=== PATIENT | female | born 1990 | race Caucasian/White ===

== ENCOUNTER 2020-05-25 16:19 | Outpatient (RCR) | payer BC, SELFPAY ==
[2019-10-27 15:29] VITALS: BMI 33.8
== END 2020-07-31 23:59 ==
LOC: IMMUN 16:19
PROVIDERS: PCP Student in an Organized Health Care Education/Training Program; Visit Provider Family Medicine
DX: Z23 Encounter for immunization (principal)
CPT/HCPCS: 0001A; 0002A; 91300

== ENCOUNTER → 2020-08-29 11:20 | Outpatient (CLI) | payer BC, SELFPAY ==
[2020-08-20 08:29] VITALS: BMI 33.8
[2020-08-29 13:04] LABS: T4 Free Direct 0.94 ng/dL (0.76-1.46); Thyroid Stim Hormone (TSH) 1.02 uIU/mL (0.358-3.74)
== END ==
PROVIDERS: PCP Student in an Organized Health Care Education/Training Program; Referring Provider Internal Medicine Endocrinology, Diabetes & Metabolism; Visit Provider Internal Medicine Endocrinology, Diabetes & Metabolism
DX: E03.8 Other specified hypothyroidism (principal); E06.3 Autoimmune thyroiditis
CPT/HCPCS: 36415; 84439; 84443

== ENCOUNTER → 2022-01-31 | Outpatient (CLI) | payer BC, SELFPAY ==
[2022-01-31 10:50] LABS: Microalbumin,Random Urine 11.7 mg/L (NO RANGE EST.); Microalbumin:Creatinine Ratio 7.6 mg/g CRE (<30 mg/g CRE)
[2022-01-31 10:58] LABS: Vitamin D,25 Hydroxy 18.8 ng/mL
[2022-01-31 11:06] LABS: ALB/GLOB Ratio 0.7 RATIO (0.9-2.4); AST(SGOT) 14 U/L (15-37); Alanine Aminotransfer ALT/SGPT 24 U/L (13-56); Albumin, Serum 3.1 g/dL (3.2-5.0); Alkaline Phosphatase 87 U/L (45-117); Anion Gap 5 (5-15); BUN 12 mg/dL (7-18); BUN/Creat Ratio 13.3 RATIO (10-20); Calcium,Total 8.7 mg/dL (8.5-10.1); Chloride 105 mmol/L (98-107); Cholesterol 174 mg/dL (200); EST Glomerular Filtration Rate 78 mL/min (>60); Est Glom Filt Rate - Afr Amer 94 mL/min (>60); Globulin 4.4 g/dL (2.2-4.2); Glucose 252 mg/dL (74-106); High Density Lipoprotein 61 mg/dL; Protein, Total 7.5 g/dL (6.4-8.2); Sodium Level 137 mmol/L (136-145); T4 Free Direct 1.17 ng/dL (0.76-1.46); Triglycerides 134 mg/dL; Very Low Density Lipoprotein 27 mg/dL (5-40)
== END | disposition home or self-care (01) ==
LOC: LAB 09:44
PROVIDERS: PCP Student in an Organized Health Care Education/Training Program; Visit Provider Internal Medicine Endocrinology, Diabetes & Metabolism
DX: E11.9 Type 2 diabetes mellitus without complications (principal); E06.3 Autoimmune thyroiditis; E55.9 Vitamin D deficiency, unspecified
CPT/HCPCS: 36415; 80053; 80061; 82043; 82306; 82570; 84439; 84443

== ENCOUNTER → 2022-12-02 | Outpatient (CLI) | payer BC, SELFPAY ==
--- NOTE | 2022-12-02 | ASPSI_PTH ---
PATIENT: HELEN ROBLERO [facility] U#:[id number] AGE/SX: 32/F ROOM: RE12/02/[address]: Dr. Eric Rolle MD : 1990 BED: DIS: 12/02/2022 SPEC #: [id number] RECD: 12/02/22 16:01 STATUS: JONATHON RECarl #: [id number] LINETTE: 12/02/22 00:[address]: Eric Rolle DEPT: CYTOLOGY RECD BY: Dinesh Pan ENTERED: 12/03/22 09:02 SP TYPE: ASP MAKENNA KRUSE DR: Dr. Clayton Barbosa DO Tissues: A - Thyroid gland, NOS B - Thyroid gland, NOS C - Thyroid gland, NOS D - Thyroid gland, NOS Procedures: Surgery Specimen Level IV Cytospin Fluid Cytology Other HEADER OPERATION: Fine needle aspiration, thyroid nodules PRE-OP DIAGNOSIS: Thyroid nodules TISSUE SUBMITTED: A - Right mid thyroid nodule fluid, B - Right mid thyroid nodule x4 slides, C - Right posterior thyroid nodule fluid, D - Right posterior thyroid nodule x4 slides DIAGNOSIS CYTOLOGY A. Fine needle aspiration, right mid thyroid nodule (cytospin and cell block): Negative for malignant cells. See comment. B. Fine needle aspiration, right mid thyroid nodule (smears): Consistent with benign follicular nodule (Arthur Category II). See comment. C. Fine needle aspiration, right posterior thyroid nodule (cytospin and cell block): Negative for malignant cells. See comment. D. Fine needle aspiration, right posterior thyroid nodule (smears): Consistent with benign follicular nodule (Arthur Category II). See comment. AM:juan jose 12/04/2022 COMMENT A. The specimen contains rare benign follicular cells and acute and chronic inflammatory cells. Clinical correlation is suggested. B. The Arthur System for thyroid diagnostic categorization was used in the evaluation of this case. Adequate for evaluation. C. Follicular cells are not present. Clinical correlation is suggested. D. The Arthur System for thyroid diagnostic categorization was used in the evaluation of this case. The majority of the smears are obscured by blood. Clinical correlation is suggested. CYTOLOGY STUDY Slides are reviewed. CYTOLOGY GROSS A - Received is 30 ml of red fluid labeled with the patient's name and and designated per the requisition as right mid thyroid nodule. Submitted for cytology preparation including cell block. B - Received are four smears labeled with the patient's name and designated per the requisition as right mid thyroid nodule. Submitted for staining. C - Received is 5 ml of light red fluid labeled with the patient's name and and designated per the requisition as right posterior thyroid nodule. Submitted for cytology preparation including cell block. D - Received are four smears labeled with the patient's name and designated per the requisition as right posterior thyroid nodule. Submitted for staining. / juan jose 12/03/2022 TC:5 CPT: 87051 x4, 37434 x2
== END | disposition home or self-care (01) ==
LOC: LABSPEC 16:04
PROVIDERS: PCP Student in an Organized Health Care Education/Training Program; Referring Provider Surgery; Visit Provider Surgery
DX: E04.2 Nontoxic multinodular goiter (principal)
CPT/HCPCS: 88108; 88161; 88305

== ENCOUNTER → 2022-12-06 | Outpatient (CLI) | payer BC, SELFPAY ==
[2022-12-06 11:22] LABS: ALB/GLOB Ratio 0.8 RATIO (0.9-2.4); AST(SGOT) 10 U/L (15-37); Alanine Aminotransfer ALT/SGPT 23 U/L (13-56); Albumin, Serum 3.2 g/dL (3.2-5.0); Alkaline Phosphatase 76 U/L (45-117); Anion Gap 3 (5-15); BUN 17 mg/dL (7-18); BUN/Creat Ratio 19.7 RATIO (10-20); Calcium,Total 8.3 mg/dL (8.5-10.1); Chloride 107 mmol/L (98-107); Cholesterol 191 mg/dL (200); Creatinine, Serum 0.86 mg/dL (0.55-1.02); EST Glomerular Filtration Rate 81 mL/min (>60); Est Glom Filt Rate - Afr Amer 99 mL/min (>60); Globulin 4.2 g/dL (2.2-4.2); Glucose 155 mg/dL (74-106); High Density Lipoprotein 62 mg/dL; Potassium 4.1 mmol/L (3.5-5.1); Protein, Total 7.4 g/dL (6.4-8.2); Sodium Level 137 mmol/L (136-145); Triglycerides 116 mg/dL; Very Low Density Lipoprotein 23 mg/dL (5-40)
[2022-12-06 11:24] LABS: Microalbumin,Random Urine 10.1 mg/L (NO RANGE EST.); Microalbumin:Creatinine Ratio 4.1 mg/g CRE (<30 mg/g CRE)
[2022-12-06 11:30] LABS: Free T3 2.2 pg/mL (2.18-3.98); T4 Total, Thyroxin 10.2 ug/dL (4.8-13.9)
== END | disposition home or self-care (01) ==
LOC: LAB 10:20
PROVIDERS: Internal Medicine Endocrinology, Diabetes & Metabolism; PCP Student in an Organized Health Care Education/Training Program; Referring Provider Surgery; Visit Provider Surgery
DX: E04.9 Nontoxic goiter, unspecified (principal); E11.9 Type 2 diabetes mellitus without complications; Z79.4 Long term (current) use of insulin
CPT/HCPCS: 36415; 80053; 80061; 82043; 82570; 84436; 84443; 84481

== ENCOUNTER 2023-01-13 12:16 | Observation (INO) | payer BC, SELFPAY ==
[2023-01-13] VITALS (9 sets, daily range): BP systolic 122–183; BP diastolic 62–102; PULSE 90–110; RESP 16–18; TEMP 36.1–36.9; O2SAT 94–100; BMI 46.9; BMI 47.9
--- NOTE | 2023-01-13 | IMM_PTH ---
PATIENT: HELEN ROBLERO LOC: [facility] U#:[id number] AGE/SX: 32/F ROOM: MS308 RE01/13/[address]: Dr. Eric Rolle MD : 1990 BED: 1 DIS: 01/14/2023 SPEC #: [id number] RECD: 01/16/23 13:17 STATUS: SOUJennifer REQ #: [id number] LINETTE: 01/13/23 00:[address]: Eric Rolle DEPT: IMMUNOHISTOCHEMISTRY RECD BY: Isabela Baugh ENTERED: 01/16/23 13:18 SP TYPE: IMMUNO OTHR DR: Dr. Clayton Barbosa DO Tissues: Thyroid gland, NOS Procedures: CD56 (add) CK19 (add) GAL-3 (add) HBME (add) Pankeratin (initial) Pankeratin (add) PHYSICIAN & INSTITUTION [place] [id number] SPECIMEN INFORMATION: Tissue Source: Thyroid Clinical Info: Multiple thyroid nodules Specimen Number: [id number] #1 & 5 CPT code: 47101, 59060 x9 METHODOLOGY: Deparaffinized sections of prefer/formalin-fixed tissue or PAP/DQ stained slides are incubated with monoclonal/polyclonal antibodies/oligonucleotide probes. Localization is made via biotin free immunoperoxidase method. Appropriate controls are performed and reacted as expected. Results on target cell population are indicated in the following table: RESULTS: ANTIBODY / CLONE RESULT Block 1 AE1-3 (AE1/AE3/PCK26) positive HBME1 (HBME-1) positive CK19 (A53-B/A2.26) positive GAL3 (9C4) positive CD56 (123C3.D5) negative Block 5 AE1-3 (AE1/AE3/PCK26) positive HBME1 (HBME-1) positive CK19 (A53-B/A2.26) positive GAL3 (9C4) positive CD56 (123C3.D5) negative These tests were developed and their performance characteristics determined by [facility]. They may not have been cleared or approved by the U.S. Food and Drug Administration. The FDA has determined that such clearance or approval is not necessary. The above immunohistochemical/dualISH markers are ordered and reviewed by the Pathologist. INTERPRETATION: Thyroid, total thyroidectomy: Papillary thyroid carcinoma. AM:juan jose 01/19/2023
[2023-01-13] MEDS: Lactated Ringers 1,000 ML 15 ML IV (06:32)
[2023-01-13 06:55] LABS: Bedside Glucose 163 mg/dL (74-106)
--- NOTE | 2023-01-13 07:26 | HP.PCM_ITS ---
History and Physical Date of Admission: 01/13/23 [facility] [address] [place], [place] [id number] OFFICE VISIT Date of Service: 12/25/22 MR#: [id number] Acct: [id number] Name: HELEN ROBLERO Rep #: [id number] : 1990 Provider: Dr. Eric Rolle MD Age/Sex: 32/F Location: [facility] Status: Signed Intake Vital Signs 12/02/2312:04 12/25/2309:04 Height 5 ft 8 in 5 ft 8 in Weight: 300 lb 310 lb 2 oz BMI 45.6 47.1 BP 155/95 H Blood Pressure Location Rt brachial Position Sitting Respiration 18 17 Pulse 110 H Pulse Source Monitor Temp 97.8 F Temp Source Temporal Pulse Oximetry (%) 100 Oxygen Delivery Method room air Intake Visit Reasons: DISCUSS SURGERY Chief Complaint: discuss sx Tong Setter Required: No Is patient in pain?: No Allergies No Known Allergies Allergy (Verified 12/02/22 13:05) PFSH Medical History Diabetes Nodular goiter Obesity Type 2 diabetes mellitus Surgical History Hx of oral surgery S/P section Family History Unknown Cancer Diabetes Thyroid disorder CVA (cerebral vascular accident) Thyroid cancerGrandmother CVA (cerebral vascular accident) Breast cancerGrandfather Colon cancerMother Cancer thyroid Thyroid disorderFather Cancer NH lymphoma Diabetes Social History Smoking Status: Former smoker alcohol intake: current substance use type: does not use HPI HPI HPI: Patient is a 32-year female who presents for enlarging thyroid nodule. She reports today for consideration of total thyroidectomy and preoperative discussions. She denies any significant updates and states that she is convinced this is the best course of action given prior conversations with her mother who underwent total thyroidectomy and was found to have thyroid cancer on final pathology?occasioning postoperative need for radioactive iodine therapy as well. Below is recapitulated from patient's initial consultation visit for ease review: They are referred for surgical consultation from Dr. Ruiz. This was discovered back in 2019 after patient felt a lump in this area. She states that she had ultrasound imaging at that time and underwent fine-needle biopsy of a right- sided nodule. She then went 4 years without having surveillance and underwent repeat biopsy through [facility] radiology after she was noted to have an increase in the size of her nodule. She believes both biopsy results were benign, however, she was referred to Dr. Ruiz on the account of her thyroid nodules enlarging. She also confirms a history of Yaima's and thyroid hor melissa supplementation with levothyroxine. They do not experience difficulty with swallowing. They do not complain of a new cough. They do not appreciate new voice changes. They do not have a histor y of snoring/sleep apnea. Additionally, their weight has been steadily increasing and they they have a history of weight gain of approximately 40 pounds in the last 3 years despite trying to lose. There is no history of recent fatigue. They do not have a history of heat or cold intolerance. 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 They do have a family history of thyroid disorders or endocrinopathies?including thyroid cancer in their mother?a diagnosis that was made incidentally with final surgical pathology but required postoperative radioactive iodine therapy. They also report that pretty much every woman and their family has hypothyroidism. There is no personal history of prior radiation exposure. Previous work-up has included thyroid ultrasound. This study was performed on 06/05/2022 and showed a right thyroid lobe measuring 7.1 x 3.6 x 4.6 cm. Within this lobe radiology identified to nodules measuring 4.4 x 3.0 x 4.6 cm and a TI- RADS rating of 3. The second nodule measured 1.1 x 1.0 x 1.4 cm with a TI-RADS rating of 4. The left thyroid lobe measured 6.0 x 1.7 x 1.8 cm. Within this lobe radiology identified a nodule measuring 1.0 x 0.7 x 1.1 cm with a solid and hyperechoic appearance for a TI-RADS rating of 3 as well. An FNA has apparently been performed, however, we are unable to identify these records. Other tests include: [TSH, T3, T4,etc ] ROS General General: Yes weight change; No appetite, fatigue, colon cancer, breast cancer or weakness HEENT HEENT: Yes swollen glands; No difficulty swallowing, eye injury, eye surgery or hoarseness Endo Endocrine: Yes diabetes mellitus; No thyroid disease, thyroid cancer, Hair loss, heat intolerance or cold intolerance Skin Skin: No rash or changing moles Breast Breast: No left breast lump, right breast lump, nipple discharge, breast pain, abnormal mammogram, abnormal US or breast enlargement Musc Musculoskeletal: No back problems, arthritis, rheumatoid arthritis, gout or joint pain Cardio Cardiovascular: No murmur, pacemaker, heart disease, atrial fibrillation, high blood pressure, heart attack, heart stent, palpitations, shortness of breat with exertion or chest pain Psych Psychiatric: Yes depression and anxiety; No hearing voices Resp Respiratory: No shortness of breath, No sleep apnea, No cough, No COPD, No asthma, No emphysema and No wheezing Gastro Gastrointestinal: No abdominal pain, No nausea or vomiting, No diarrhea, No constipation, No blood in stool, No acid reflux, No hemorrhoids, No ulcers, No gallbladder problem and No black,tarry stools Rudolph Hematologic: No blood thinners, No blood disorders, No bleeding, No anemia and No blood clots Neuro Neurologic: No system reviewed and no additional complaints, except as documented, No as per HPI, No abnormal gait, No abnormal hearing, No abnormal movements, No abnormal speech, No behavioral changes, No burning sensations, No confusion, No convulsions, No disequilibrium, No dizziness, No localized weakness, No frequent falls, No headache(s), No lack of coordination, No loss of vision, No memory loss, No numbness, No other visual disturbances, No radicular pain, No restless legs, No sensory deficit, No syncope, No tingling, No tremor(s), No weakness and No other Exam Const General: cooperative and healthy appearing Orientation: alert and awake Neck Other: Well-healed from prior biopsy, nontender Assessment and Plan Assessment and Plan (1) Multiple thyroid nodules: Status: Acute Comment: This is a 32-year-old female who presents for evaluation of thyroid nodules that have apparently enlarged over period of 4 years surveillance. She has a history of Yaima's and hypothyroidism corrected with supplemental levothyroxine. She is now status post repeat FNA of right-sided thyroid nodules returned clearly benign as Mutual 2 designations. Still, she wishes to pursue total thyroidectomy on the account of nodular growth and her history of hypothyroidism. She wishes to be through with the thyroid surveillance and shares concern about her family all history with her mother having thyroid cancer 20 years ago. I have admitted that there is some risk for sampling error when thyroid nodules get over 3 cm in diameter (which hers is greater than 4 cm). We held a good conversation today regarding the details of a total thyroidectomy and the attendant risks including a discussion on hypoparathyroidism and recurrent laryngeal nerve injury. I shared with her the use of intraoperative nerve monitoring as a means of trying to mitigate the risk for the latter issue. She states understanding of this information and wishes to proceed with scheduling an operation before the holidays. Plan: ? Plan for total thyroidectomy with intraoperative nerve monitoring. Procedure to be scheduled as a postop observational stay.\\ I have examined the patient and the H&P has been reviewed. There are no clinical changes since date of exam. Procedure and post procedure expectations were reviewed. We will plan to admit patient for an observational stay posto peratively. Neither she nor her spouse have any further questions. Proceed to the operating room for total thyroidectomy with intraoperative nerve monitoring as discussed above.
--- NOTE | 2023-01-13 07:30 | THYROID_PTH ---
PATIENT: HELEN ROBLERO LOC: [facility] U#:[id number] AGE/SX: 32/F ROOM: [facility] RE01/13/[address]: Dr. Eric Rolle MD : 1990 BED: 1 DIS: 01/14/2023 SPEC #: [id number] RECD: 01/14/23 09:26 STATUS: JONATHON RAMOS #: [id number] LINETTE: 01/13/23 07:[address]: Eric Rolle DEPT: SURGICAL PATHOLOGY RECD BY: Ange Hamm ENTERED: 01/14/23 09:26 SP TYPE: THYROID OTHR DR: Dr. Clayton Barbosa, DO Tissues: Thyroid gland, NOS Procedures: Surgery Specimen Level V HEADER OPERATION: Total thyroidectomy PRE-OP DIAGNOSIS: Multiple thyroid nodules TISSUE SUBMITTED: Thyroid, stitch peterson right superior pole MICROSCOPIC DIAGNOSIS Thyroid, total thyroidectomy: Papillary thyroid carcinoma. See synoptic report below. AM:juan jose 01/19/2023 COMMENT Immunohistochemistry ([id number]) supports the above diagnosis. THYROID CANCER SUMMARY Procedure: Total Thyroidectomy Tumor Focality: Bifocal Tumor Site: Right lobe and isthmus Tumor Size: 6.0 millimeters (isthmus), 1.5 millimeters (right lobe) Histologic Type: Papillary thyroid carcinoma Margins: Free of carcinoma Angioinvasion: Not identified Lymphatic Invasion: Not identified Extrathyroidal Extension: Not identified Regional Lymph Nodes: Number of lymph nodes examined: 4 Number of Lymph nodes involved: 0 Node Levels Involved: Not applicable Size of Largest Metastatic Deposit: Not applicable Extranodal Extension: Not applicable Ancillary Studies: [id number] Additional Pathologic Findings: Chronic follicular lymphocytic thyroiditis, colloid nodules with adenomatoid change. Clinical History: Multiple thyroid nodules PATHOLOGIC STAGE: T1b N0 Mx The above summary is in compliance with [employer] (CAP) Cancer Protocols Checklist and [place] Joint Committee on Cancer (AJCC), Staging Manual, 8th Ed. MICROSCOPIC DESCRIPTION Slides are reviewed. GROSS DESCRIPTION Received in fixative is one container labeled with the patient's name and designated thyroid. The specimen consists of a thyroid weighing 62.8 gm. The right lobe is enlarged and measures 7.5 x 5.0 x 3.5 cm. The isthmus measures 3.0 x 2.5 x 1.0 cm. The left lobe measures 4.5 x 2.2 x 2.0 cm. The specimen is differentially inked as follows: right lobe - green, left lobe - blue, isthmus - red and entire posterior surface - black. Serial sections of the isthmus reveal a newell, nodular area measuring 0.6 cm in greatest dimension. Serial sections of the left lobe does not reveal mass lesions. Serial sections of the left lobe reveal a fleshy, red-newell nodule measuring 4.5 x 4.0 x 3.5 cm. [place]yer sections are submitted in 12 cassettes as follows: 1 & 2 - isthmus, totally submitted, 3-5 - right lobe, totally submitted, 6-12 - food service sales representatives sections of the right lobe. / AM:juan jose 01/14/2023 TC:0 [facility]: [id number]
[2023-01-13] MEDS: Cefazolin 3 GM in 0.9% Normal Saline (100mL Bag) 100 ML IV (07:38)
[2023-01-13] MEDS: Bupivacaine 0.25% 30 ML Vial (12:10)
--- NOTE | 2023-01-13 12:24 | PCM.OPRPT ---
Problems Associated Problem List Diagnoses (1) S/P total thyroidectomy: Report of Operation Date of Procedure: 01/13/23 Pre-Operative Diagnosis: Multinodular goiter Post-Operative Diagnosis: Same Surgery/Procedure Performed:: Total thyroidectomy with intraoperative nerve monitoring Description of Surgical Findings:: ? Intact parathyroid glands by gross exam bilaterally ? Intact recurrent laryngeal nerves bilaterally both grossly and by confirmation of nerve monitor signal Surgeon: Eric Rolle learning and development administrator: Renan Bojorquez learning and development administrator: Ortiz Ospina Type of Anesthesia: General/Supplemental Anesthesiologist: Antonio Delgado Specimen's removed: Thyroid Estimated Blood Loss (mL): 125 Description of Procedure: After appropriate identification in the preoperative holding area, the patient was brought to the operating room where she was positioned supine with arms tucked taking care to pad the ulnar nerve bilaterally. Induction of general endotracheal anesthetic was begun and a NIMS tube was placed under glidescope view to confirm coaptation with the vocal cords anteriorly. Tube was then secured and the patient was positioned with a shoulder roll so that her head was in extension but supported. The Nims electrodes were placed and connected to the monitor. We had appropriate resistance showing on the monitor and tapping at the level of the cricoid produce a graphical representation of the impulse on the monitor. Patient's neck was then prepped and draped in usual sterile fashion and a formal timeout was conducted with those present. During this time preoperative antibiotics were completed by anesthesia. The lowest skin fold to the sternal notch was selected for incision site (this resided approximately 2.5 fingerbreadths cephalad to the notch). Local anesthetic was instilled and a incision was extended for 3 cm on either side of midline (however, this incision required extension later in the procedure by a total of 2 additional centimeters). Electrocautery was used to deepen this incision through the level of the platysma. Subplatysmal flaps were raised with the use of electrocautery and blunt dissection. The strap muscles were then divided along the medial raphe bringing us down to the level of the thyroid. Capsular attachments to the thyroid were divided with the use of LigaSure or bluntly swept away. Retractors were placed providing visualization of the superior pole of the right lobe of the thyroid. The vessels of the superior pole were sequentially ligated with the use of the LigaSure device. As we moved towards the thyroid gland away from the pole vessels, we visualized the superior parathyroid gland. We then moved inferiorly and divided those polar vessels with LigaSure. The inferior parathyroid gland was grossly visualized and preserved with this division. With the poles freed the thyroid was mobilized medially by bluntly the remaining strap muscle fibers from the thyroid capsule and using LigaSure to divide the middle thyroid vein. I attempted to deliver the patient's large lobe through the incision so that I could then visualize the area of the tracheoesophageal groove directly, but continued to deal with significant oozing. There was also a bit of an aberrant collection of vessels just lateral to the area of the ligament of Yadav and that were causing some oozing. Ensuring adequate traction on the gland and of these vessels I was able to establish a favorable plane and using the Nims monitor was able to obtain a positive signal on her right recurrent laryngeal nerve. The nerve positively identified, I began carefully dissecting off the remaining tracheal attachments around the area of the nerve. I created a minuscule thyroid remnant by insinuating my right angle dissector between patient's thyroid cartilage and the dense attachments at the ligament of Yadav. This remnant was secured with a 4-0 silk ligature and then sharply divided. After elevating the thyroid from this point I attempted to use electrocautery to remove the thyroid from the tracheal surface. Unfortunately, this was met with significant bleeding both superiorly and inferiorly. Pressure was applied and I used some selective electrocautery to obtain hemostasis inferiorly. Superiorly, I remained concerned for the proximity to the nerve so I simply clearly identified a site of bleeding and then performed a suture ligature with 4-0 Vicryl. Ultimately I was able to establish a normal plane over the trachea and obtain hemostasis. As I rounded the area of the superior thyroid cartilage I became aware of a pyramidal lobe which was dissected free of the surrounding soft tissue and cricothyroid musculature. We reexamined the area of the nerve and could see it fully intact entering the cricothyroid joint and confirmed signal with our Nims monitor. We then moved to removal of the left thyroid lobe with a similar technique taking care to remove the strap muscles from their capsular attachments to the lobe. The superior pole vessels were taken in like fashion with use of LigaSure energy. The inferior pole vessels and middle thyroid vein were also divided in this fashion. This lobe proved to be significantly smaller in size than the right and much more mobile within the cavity. Finger fracture was used to remove the remaining attachments of the strap muscles to the thyroid capsule. Along the superior pole, there was some adherent adipose tissue and a newell structure that appeared to represent the left superior pole parathyroid. Based on this gross identification, this packet of tissue-including the parathyroid was removed from the superior pole capsule with fine blunt dissection and careful electrocautery. The parathyroid appeared well vascularized following the separation. As the thyroid was medialized and removed from the surgical bed, there was a structure that appeared to represent the recurrent laryngeal nerve, however, I was unable to get a positive signal with our Nims monitor. I dissected this more distally and found the nerve to be fully intact in virgin anatomical territory. Still believing this to be the nerve I used the checkpoint surgical nerve monitor and indeed obtained robust contractions of the posterior cricoarytenoid muscle as well as an audible signal on her Nims monitor. Definitively confirming the left recurrent nerve, additional fine blunt dissection was used to remove the remaining thyroid attachments to the trachea at the ligament of Yadav. Again, I established a thyroid remnant between 2 silk ligatures and sharply incised the thyroid to from the insertion point of the nerve. Once we were 2 to 3 mm away from the area of the nerve insertion, the gland was removed from the trachea with the use of electrocautery. Our final specimen was marked with a 3-0 Vicryl stitch through the right upper pole and passed off the field for pathologic processing. Both surgical cavities were inspected for hemostasis; closer to the nerve there was some additional oozing and Surgicel hemostatic agent was placed bilaterally while pressure was applied. Once this pressure was relieved, the surgical cavity was again inspected and I asked anesthesia to perform a Valsalva maneuver. On the left side this produced sudden bleeding from the patient's trachea and that vessel is promptly addressed with selective electrocautery. And once this bleeding was addressed, I found hemostasis to be intact bilaterally. Satisfied with this result, the strap muscles were closed with a running 3-0 Vicryl stitch leaving a small gap at the inferior aspect of the suture line. The platysmal flaps were closed with interrupted 3-0 Vicryl. Some additional local anesthetic was infiltrated throughout the dermis and the skin was closed in a subcuticular fashion using 4-0 Monocryl. Steri-Strips were applied. Telfa and Tegaderm were used as a dressing. The patient was then awakened from anesthetic without event and was taken to PACU for ongoing recovery. Complications None Admit VTE Documentation VTE Mechan Device Prophylaxis: SCD's Procedures Endocrine CF Procedures [id number]: [id number] Removal of thyroid
[2023-01-13 13:08] LABS: Bedside Glucose 230 mg/dL (74-106)
[2023-01-13 13:09] LABS: PTHIN 58.2 pg/mL (18.4-80.1)
[2023-01-13] MEDS: 0.9% Normal Saline (1000mL) 1,000 ML 125 ML IV ×2 (13:56→21:48)
[2023-01-13] MEDS: BENZOCAINE/MENTHOL 1 LOZENGE MUCOUS MEM (14:38)
[2023-01-13] MEDS: Acetaminophen 500 MG Tablet PO ×2 (14:38→21:53)
[2023-01-13] MEDS: Insulin Lispro 100 UNIT/ML INSULN.PEN SC ×2 (15:54→21:50)
[2023-01-13 16:24] LABS: Bedside Glucose 261 mg/dL (74-106)
[2023-01-13] MEDS: Calcium Carb/Vitamin D 1 TABLET Tablet PO (17:34)
[2023-01-13] MEDS: Ibuprofen 400 MG Tablet PO (17:34)
[2023-01-13] MEDS: DiphenhydrAMINE 25 MG Capsule PO (21:53)
[2023-01-13 22:12] LABS: Bedside Glucose 236 mg/dL (74-106)
[2023-01-14] MEDS: Ibuprofen 400 MG Tablet PO ×2 (00:55→05:11)
[2023-01-14 03:03] VITALS: BP 152/85; PULSE 89; RESP 18; TEMP 36.6; O2SAT 96
[2023-01-14] MEDS: 0.9% Normal Saline (1000mL) 1,000 ML 125 ML IV (05:11)
[2023-01-14] MEDS: BENZOCAINE/MENTHOL 1 LOZENGE MUCOUS MEM (05:12)
[2023-01-14] MEDS: Levothyroxine 100 MCG Tablet 200 MCG PO (05:12)
[2023-01-14] MEDS: Insulin Lispro 100 UNIT/ML INSULN.PEN SC (06:32)
[2023-01-14 07:16] LABS: Bedside Glucose 175 mg/dL (74-106)
[2023-01-14 08:00] VITALS: BP 147/89; PULSE 76; RESP 18; TEMP 36.6; O2SAT 98
--- NOTE | 2023-01-14 09:07 | PN.SURG_ITS ---
Subjective Subjective Patient seen and examined during AM rounds. She is found resting in bed. She reports minimal discomfort and states that her sore throat is improved with the use of lozenges. She also confirms that she was able to get some sleep after receiving Benadryl last night. Objective Data Objective Data Vital Signs: Vital Signs Temp Pulse Resp BP Pulse Ox O2 Del Method 97.9 F 76 18 147/89 H 98 Room Air 01/14/23 08:00 01/14/23 08:00 01/14/23 08:00 01/14/23 08:00 01/14/23 08:00 01/14/23 08:00 Oxygen Delivery Method Room Air Weight: 315 lb Body Mass Index (BMI) 47.9 Intake & Output: Intake and Output for Last 24 Hours 01/12/23 01/13/23 01/14/23 23:59 23:59 23:59 Intake Total 3416.08 / 3416.08 1922.92 / 1922.92 Balance 3416.08 / 3416.08 1922.92 / 1922.92 Lab / Micro Data Labs: Laboratory Results - last 24 hr 01/13/23 12:45: POC Glucose 230 H 01/13/23 12:47: PTH Intact 58.2 01/13/23 15:52: POC Glucose 261 H 01/13/23 21:50: POC Glucose 236 H 01/14/23 06:28: POC Glucose 175 H Physical Exam Const oriented x3 and no apparent distress Neck Neck Narrative: Patient's operative dressing remains clean dry and intact. Her soft tissues remain soft without concern for underlying fluid collection. There is minimal tenderness about her incision with palpation. Resp normal respiratory effort Assessment & Plan Assessment/Plan (1) S/P total thyroidectomy: PLAN: Patient is postoperative day 1 from total thyroidectomy for diagnosis of multinodular goiter. Operation was challenging due to patient's habitus and large size of the gland with some vascular hypertension owing to this size, but at the conclusion of the procedure I was pleased to identify all 4 parathyroid glands and functional recurrent laryngeal nerves. This morning patient reports minimal discomfort and has tolerated a transitional diet. She remarks of some improving numbness in her right hand which she states is most consistent with her carpal tunnel syndrome. I am inclined to agree is this unilateral affect would be more likely owing to this etiology then to hypocalcemia. Immediately postop we obtained a stat PTH which showed this activity to be well within normal limits?further corroborating this suspicion. Calcium and PTH are pending for this morning again. Will seek to confirm that these labs are appropriate before discharge, but otherwise we will plan for discharge to home with outp atient follow-up in 7 to 10 days. Patient advised on wound care as well as medication administration. She denies any further questions. Charges/Coding Visit Charges Inpatient E&M: 08322 Subs Hosp L2
--- NOTE | 2023-01-14 09:12 | PCM.DC ---
Discharge Instructions Diet Discharge Diet: Soft diet (Okay to advance to unrestricted once tolerating) Activity Discharge Activity: May Not Drive (While still difficult to turn head from side to side (impairing blindspot checking) OR if taking narcotic pain medications) May shower in (days): 1 Ice area for (Minutes): 20 Dressing / Incision Call your doctor if your incision/area has: Continuous Slow Oozing, Sudden Increased Bleeding, Increased Pain/ Swelling, Increased Redness and Swelling at the incision site Call your doctor if you observe: Fever of 101 or Higher, Numbness or Tingling (of fingertips or lips) and - (Difficulty swallowing) Remove Dressing in: 2 days (Remove outer dressing but leave steri strips in place until they fall off spontaneously) Cleanse incision/area with: Soap & Water (Avoid scrubbing/ submersing) Follow Up Care Please Follow Up With: Eric Rolle MD When: In 7 to 10 days for postop check Test Results: Test results from this visit will be discussed in further detail at your follow-up appointment, if applicable. Discharge Plan Admission Admit Date/Time: 01/13/23 12:16 Primary Reason for Your Visit: Total thyroidectomy Attending Provider: Eric Rolle Primary Care Provider: Clayton Barbosa Discharge Orders/Prescriptions Prescriptions: New levothyroxine 100 mcg Tablet 200 mcg PO DAILY 35 Days Qty: 70 0RF calcium carbonate-vitamin D3 [Oyster Shell Calcium-Vit D3] 500 mg-5 mcg (200 unit) Tablet 1 tab PO TIDCM Qty: 30 1RF Rx Instructions: Please take 1 tab at bfast and lunch then 2 tabs at dinner/evening Continued sertraline 50 mg tablet 50 mg PO DAILY Novolin N NPH U-100 Insulin 100 unit/mL suspension 40 unit SC QPM Qty: 36 1RF Fiasp FlexTouch U-100 Insulin 100 unit/mL (3 mL) insulin pen 30 unit SC TID Qty: 90 1RF No Action (DME) Dexcom G6 Data Specialist Misc See Rx Instructions .ROUTE .MEDSUPPLY Qty: 1 0RF Rx Instructions: As directed levothyroxine 125 mcg tablet 125 mcg PO DAILY Qty: 90 3RF (DME) Dexcom G6 Transmitter Device See Rx Instructions .ROUTE .MEDSUPPLY Qty: 1 1RF Rx Instructions: 1 transmitter q 90 days (DME) Dexcom G6 Sensor Device See Rx Instructions .ROUTE .MEDSUPPLY Qty: 9 3RF Rx Instructions: 1 sensor q 10 days (DME) pen needle, diabetic [BD Ultra-Fine Mirella Pen Needle] 32 gauge x 5/32 needle See Rx Instructions .ROUTE .MEDSUPPLY Qty: 150 4RF Rx Instructions: 4 times daily Referrals / Follow Up: Clayton Barbosa DO [Primary Care Provider] - Eric Rolle MD [Med Staff - Active Staff] - Disposition Disposition (needs filled in before D/C Order can be placed): Home, Self Care
[2023-01-14 09:13] LABS: Calcium,Total 7.6 mg/dL (8.5-10.1)
[2023-01-14 09:14] LABS: PTHIN 59.8 pg/mL (18.4-80.1)
[2023-01-14] MEDS: Calcium Carb/Vitamin D 1 TABLET Tablet PO (09:24)
== END 2023-01-14 11:37 | disposition home or self-care (01) ==
LOC: SDC 15:34 → MS3 15:34
PROVIDERS: Admitting Provider Surgery; PCP Student in an Organized Health Care Education/Training Program; Referring Provider Surgery; Visit Provider Surgery
PROC: (CPT 60252; principal; 2023-01-13 07:15)
DX: C73 Malignant neoplasm of thyroid gland (principal); Z68.42 Body mass index [BMI] 45.0-49.9, adult; E11.9 Type 2 diabetes mellitus without complications; Z79.4 Long term (current) use of insulin; E66.9 Obesity, unspecified; Z87.891 Personal history of nicotine dependence; Z79.899 Other long term (current) drug therapy; Z79.890 Hormone replacement therapy; E06.3 Autoimmune thyroiditis; R03.0 Elevated blood-pressure reading, without diagnosis of hypertension; F41.9 Anxiety disorder, unspecified; F32.A Depression, unspecified
CPT/HCPCS: 60252; 00320; 82310; 82962; 83735; 83970; 88307; 88341; 88342; 96360; 96361; 99221; J7030; J7120; G0378; J2405

== ENCOUNTER → 2023-01-23 | Outpatient (CLI) | payer BC, SELFPAY ==
[2023-01-23 15:37] LABS: Calcium,Total 8.3 mg/dL (8.5-10.1)
[2023-01-23 15:41] LABS: PTHIN 104.6 pg/mL (18.4-80.1)
== END | disposition home or self-care (01) ==
LOC: LAB 14:45
PROVIDERS: PCP Student in an Organized Health Care Education/Training Program; Referring Provider Surgery; Visit Provider Surgery
DX: E89.0 Postprocedural hypothyroidism (principal)
CPT/HCPCS: 36415; 82310; 83970

== ENCOUNTER → 2023-03-02 | Outpatient (CLI) | payer BC, SELFPAY ==
--- OUTSIDE RECORDS SUMMARY | 2023-03-02 12:44 | XMS RPT_ITS | CCD ---
Author Name Unknown Address [address] [place] [address] Organization [facility] Care Team Providers Care Butadiene Converter Utility Operator Name Role Phone DR ABEL IRELAND DO Primary Care Physician [phone] DR ABEL IRELAND DO Attending Unavailable DR ABEL IRELAND DO Primary Care Unavailable DR ABEL IRELAND DO Attending Unavailable SHU YOUNGBLOOD, DR ROMAN Primary Care Unavailable Medications Current Medications Medication Drug Class(es) Dates Sig (Normalized) Sig (Original) ibuprofen 600 mg oral tablet (2 sources) Nonsteroidal Anti-inflammatory Drug Start: 09-09-2020 IBU 600 mg oral tablet Dose : 600 mg = 1 tab(s), Oral, q6h, # 40 tab(s), 0 Refill(s), Pharmacy: [facility]/pharmacy #[id number], 172.7, cm, 09/06/20 19:48:00 EDT, Height, kg, 09/06/20 19:48:00 EDT, Dosing Weight Start Date: 09/09/20 Status: Ordered 3 ml insulin aspart, human 100 unt/ml pen injector (3 sources) Insulin Analog Start: 10-15-2022 Fiasp FlexTouch 100 units/mL injectable solution See Instructions, am is 30 units lunch is 20 units dinner is 25 units, 0 Refill(s) Start Date: 10/15/22 Status: Ordered Problems Problem Classification Problem Date Documented Da te Episodic/Chronic Anxiety disorders (2 sources) Generalized anxiety disorder 01-04-2020 Chronic Diabetes mellitus without complication (4 sources) Diabetes mellitus; Translations: [Type 2 diabetes mellitus without complications] Onset: 3 01-04-2020 Chronic Headache; including migraine (2 sources) Chronic headache disorder 01-04-2020 Episodic Mood disorders (2 sources) Recurrent major depressive episodes, mild 01-04-2020 Chronic Other and unspecified benign neoplasm (2 sources) Melanocytic nevus 04-18-2022 Episodic Other circulatory disease (2 sources) Elevated blood-pressure reading without diagnosis of hypertension 09-13-2020 Episodic Other circulatory disease (2 sources) Elevated blood-pressure reading, without diagnosis of hypertension; Translations: [Elevated blood-pressure reading, without diagnosis of hypertension] Onset: 3 Episodic Other complications of ; puerperium affecting management of mother (2 sources) Large for gestation age fetus 09-06-2020 Episodic Other connective tissue disease (2 sources) Plantar fasciitis 04-18-2022 Episodic Other connective tissue disease (2 sources) Swelling of lower limb 09-13-2020 Episodic Other gastrointestinal disorders (2 sources) Diarrhea 01-04-2020 Episodic Other hematologic conditions (2 sources) Hyperglobulinemia 04-18-2022 Episodic Other nervous system disorders (7 sources) Carpal tunnel syndrome 01-04-2020 Chronic Residual codes; unclassified (2 sources) Current drinker 01-04-2020 Episodic Residual codes; unclassified (2 sources) Family history of malignant lymphoma 01-04-2020 Episodic Residual codes; unclassified (2 sources) Reduced libido 01-04-2020 Episodic Thyroid disorders (3 sources) Yaima thyroiditis; Translations: [Multinodular goiter] 01-04-2020 Chronic Unclassified (2 sources) Breast feeding () (observable entity) 09-08-2020 Results Test Name Value Interpretation Reference Range Facil ity Encounters Encounter Date Encounter Type Care Provider Facility Start: 10-15-2022 End: 10-20-[address] ABEL IRELAND DO Facility:B Start: 10-15-2022 End: 10-19-[address] ABEL IRELAND DO [facility] Start: 06-05-2022 End: 06-06-[address] ABEL IRELAND DO Facility:[facility] Start: 06-05-2022 End: 06-05-[address] ABEL IRELAND DO [facility] Procedures Date Procedure Procedure Detail Performing Clinician section DR ABEL HEDRICK DO Oral DR ABEL Treadwell O Immunizations Immunization Date Immunization Notes Care Provider Marissa [facility] 12-03-2021 COVID-19, mRNA, LNP- S, bivalent booster, PF, 30 mcg/0.3 mL dose; Translations: [[employer] COVID-19 (12y+) Bivalent Booster Vaccine PF] DR ABEL IRELAND DO [facility] 12-03-2021 influenza, injectabl e, quadrivalent, contains preservative; Translations: [Fluarix PF Quadrivalent ] DR ABEL IRELAND DO [facility] 12-26-2020 SARS-CoV-2 (COVID-19 ) mRNA-[address] ABEL IRELAND DO [facility] Payers Date Payer Category Payer Unknown [id number] 1990 Unknown [id number] 1990 Unknown [id number] Social History Date Type Detail Facility Start: 03-08-2019 Tobacco smoking status Ex-smoker (fi nding) [facility] Sex Assigned At Female [facility] Evaluation + Plan note Laboratory Note Date & Type Note Facility Evaluation + Plan note Future Appointments Appointment Date:10/15/2022 10:00:00 AM Scheduled Provider:ABEL IRELAND DO Location:[facility] Appointment Type:PC OV Future Scheduled TestsProtein Electrophoresis Urine 04/18/22Protein Electrophoresis Panel 04/18/22 [facility] Evaluation + Plan note LaboratoryRadiology Note Date & Type Note Facility Evaluation + Plan note Future Appointments Appointment Date:10/21/2022 11:30:00 AM Scheduled Provider:ABEL IRELAND DO Location:[facility] Appointment Type:PC OV Future Scheduled TestsProtein Electrophoresis Urine 2/24/23Protein Electrophoresis Panel 04/18/22US Thyroid 05/25/23 [facility] Hospital course Narrative Note Date & Type Note Facility Hospital course Narrative No data available for this section [facility] Hospital Discharge instructions Note Date & Type Note Facility Hospital Discharge instructions No data available for this section [facility] Progress note Note Date & Type Note Facility Progress note No data available for this section [facility] Summary Purpose Family History No Family History Records FoundNo Family History Records Found No data available for this section Advance Directives No Advanced Directives Records FoundNo Advanced Directives Records Found Additional Source Comments INFORMATION SOURCE (unrecogn ized section and content) DATE CREATED AUTHOR AUTHOR'S ORGANIZ ATION 10/19/2022 [facility] ([place]) Patient Care team informatio n (unrecognized section and content) Care Team Personnel Name: ABEL IRELAND DO Position: P4 Physician - Primary Care Member Role: Primary Care Physician Address: Address: [address] [place] [address] Care Team Related Persons Name: KVNG ROBLERO Address: Home [address] [place], [place] [id number] Care Team Personnel Name: DMITRI BURGESS MD Member Role: Reconstructive Surgeon Address: Address: [address] [place] [address] Endocrinology [place] [id number] Name: ABEL IRELAND DO Position: P4 Physician - Primary Care Member Role: Primary Care Physician Address: Address: [address] [place] [address] Care Team Related Persons Name: KVNG ROBLERO Address: Home [address] [place], [place] [id number] US FOR RECORDS PERTAINING TO PATIENTS WHO ARE OR HAVE BEEN ENROLLED IN A CHEMICAL DEPENDENCY/SUBSTANCEABUSE PROGRAM, SOME INFORMATION MAY BE OMITTED. This clinical summary was aggregated from multiple sources. Caution should be exercised in using it in the provision of clinical care. This summary normalizes information from multiple sources, and as a consequence, information in this document may materially change the coding, format and clinical context of patient data. In addition, data may be omitted in some cases. CLINICAL DECISIONS SHOULD BE BASED ON THE PRIMARY CLINICAL RECORDS. [facility] [employer] [facility]. provides no warranty or guarantee of the accuracy or completeness of information in this document.
[2023-03-02 13:38] LABS: PTHIN 33.6 pg/mL (18.4-80.1)
[2023-03-02 13:53] LABS: Calcium,Total 8.8 mg/dL (8.5-10.1); Free T3 2.1 pg/mL (2.18-3.98); T4 Free Direct 1.21 ng/dL (0.76-1.46)
== END | disposition home or self-care (01) ==
LOC: LAB 12:34
PROVIDERS: PCP Student in an Organized Health Care Education/Training Program; Referring Provider Surgery; Visit Provider Surgery
DX: E89.0 Postprocedural hypothyroidism (principal)
CPT/HCPCS: 36415; 82310; 83970; 84439; 84443; 84481

== ENCOUNTER → 2023-05-06 | Outpatient (CLI) | payer BC, SELFPAY ==
--- OUTSIDE RECORDS SUMMARY | 2023-05-06 09:36 | XMS RPT_ITS | CCD ---
Author Name Unknown Address [address] [place] [address] Organization [facility] Care Team Providers Care Bench Precision Assembler Name Role Phone DR ABEL IRELAND DO [...] q6h, # 40 tab(s), 0 Refill(s), Pharmacy: [facility]/pharmacy #[id number], 172.7, cm, 09/06/20 19:48:00 EDT, Height, [...] 10-19-[address] ABEL IRELAND DO [facility] Start: 06-05-2022 End: 06-06-[address] ABEL IRELAND DO Facility:B Start: 06-05-2022 End: 06-05-[address] ABEL IRELAND DO [facility] Procedures Date Procedure Procedure Detail Performing Clinician section DR ABEL HEDRICK DO Oral DR ABEL Treadwell O Immunizations Immunization Date Immunization Notes Care Provider Marissa [facility] 12-03-2021 COVID-19, mRNA, LNP- S, bivalent booster, PF, 30 mcg/0.3 mL dose; Translations: [[employer] COVID-19 (12y+) Bivalent Booster Vaccine PF] DR ABEL IRELAND DO [facility] 12-03-2021 influenza, injectabl e, quadrivalent, contains preservative; Translations: [Fluarix PF Quadrivalent ] DR ABEL IRELAND DO [facility] 12-26-2020 SARS-CoV-2 (COVID-19 ) mRNA-[address] ABEL IRELAND DO [facility] Payers Date Payer Category Payer Unknown [id number] 1990 Unknown [id number] 1990 Unknown [id number] Social History Date Type Detail Facility Start: 03-08-2019 Tobacco smoking status Ex-smoker (fi nding) [facility] Sex Assigned At Female [facility] Evaluation + Plan note Laboratory Note Date & Type Note Facility Evaluation + Plan note Future Appointments Appointment Date:10/15/2022 10:00:00 AM Scheduled Provider:ABEL IRELAND DO Location:[facility] Appointment Type:PC OV Future Scheduled TestsProtein Electrophoresis Urine 04/18/22Protein Electrophoresis Panel 04/18/22 [facility] Evaluation + Plan note LaboratoryRadiology Note Date & Type Note Facility Evaluation + Plan note Future Appointments Appointment Date:10/21/2022 11:30:00 AM Scheduled Provider:ABEL IRELAND DO Location:[facility] Appointment Type:PC OV Future Scheduled TestsProtein Electrophoresis Urine 2/24/23Protein Electrophoresis Panel 04/18/22US Thyroid 05/25/23 [facility] Hospital course Narrative Note Date & Type Note Facility Hospital course Narrative No data available for this section [facility] Discharge instructions Note Date & Type Note Facility Hospital Discharge instructions No data available for this section [facility] Progress note Note Date & Type Note Facility Progress note No data available for this section [facility] Summary Purpose Family History No Family History Records FoundNo Family History Records Found No data available for this section Advance Directives No Advanced Directives Records FoundNo Advanced Directives Records Found Additional Source Comments INFORMATION SOURCE (unrecogn ized section and content) DATE CREATED AUTHOR AUTHOR'S ORGANIZ ATION 10/19/2022 [facility] ([place]) Patient Care team informatio n (unrecognized section and content) Care Team Personnel Name: ABEL IRELAND DO Position: P4 Physician - Primary Care Member Role: Primary Care Physician Address: Address: [address] [place] [address] Care Team Related Persons Name: KNVG ROBLERO Address: Home [address] [place], [place] [id number] Care Team Personnel Name: DMITRI BURGESS MD Member Role: Programming Development Project Manager Address: Address: [address] [place] [address] Endocrinology [place] [phone] Name: ABEL IRELAND DO Position: P4 Physician - Primary Care Member Role: Primary Care Physician Address: Address: [address] [place] [address] Care Team Related Persons Name: KVNG ROBLERO Address: Home [address] [place], [place] [id number] US FOR RECORDS PERTAINING TO PATIENTS WHO [...] BE BASED ON THE PRIMARY CLINICAL RECORDS. [facility] [employer] [facility]. provides no warranty or guarantee of the accuracy or completeness of information in this document.
[2023-05-06 10:37] LABS: T4 Free Direct 1.56 ng/dL (0.76-1.46); Thyroid Stim Hormone (TSH) 1.92 uIU/mL (0.358-3.74)
[2023-05-17 12:07] LABS: Anti-Thyroglobulin AB 9.8 IU/mL (0.0-0.9); Thyroglobulin RIA 4.2 ng/mL (.)
== END | disposition home or self-care (01) ==
PROVIDERS: PCP Student in an Organized Health Care Education/Training Program; Referring Provider Internal Medicine Endocrinology, Diabetes & Metabolism; Visit Provider Internal Medicine Endocrinology, Diabetes & Metabolism
DX: C73 Malignant neoplasm of thyroid gland (principal); E89.0 Postprocedural hypothyroidism
CPT/HCPCS: 36415; 84432; 84439; 84443; 86800

== ENCOUNTER → 2024-01-20 | Outpatient (CLI) | payer BC, SELFPAY ==
--- NOTE | 2024-01-20 13:00 | US_ITS ---
INDICATION: Thyroid cancer -- Total Thyroidectomy 01/14/23 EXAMINATION: Ultrasound US Thyroid (eg thyroid, parathyroid, parotid) TECHNIQUE: Lewis scale and color doppler imaging was performed of the thyroid gland. COMPARISON: FINDINGS: Status post thyroidectomy. Right-sided node measuring 10 mm. Hypoechoic 9 mm nodule. Left-sided node measuring 7 mm. 2 hypoechoic nodules measuring 6 and 7 mm. US/Thyroid IMPRESSION: Hypoechoic nodules as noted. The visualized lymph nodes are normal in size and echo morphology. Electronically Signed: Kaleb Oviedo DO at 10:18 EST ,
== END | disposition home or self-care (01) ==
LOC: US 12:59
PROVIDERS: PCP Student in an Organized Health Care Education/Training Program; Referring Provider Surgery; Visit Provider Surgery
DX: C73 Malignant neoplasm of thyroid gland (principal)
CPT/HCPCS: 76536

== ENCOUNTER → 2024-03-29 | Outpatient (CLI) | payer BC, SELFPAY ==
[2024-03-29 10:51] LABS: Hematocrit 42.3 % (37-47); Mean Corp Hgb Conc 33.1 g/dL (32-36); Mean Corpuscular Volume 87.8 fL (81-99); Mean Platelet Vol. 9.9 fl (6.2-12.0); Platelet Count 442 K/mm3 (150-450); RBC Distribution Width CV 13.2 % (11.6-14.6); RBC Distribution Width SD 42.1 fl (35.1-43.9); Red Blood Count 4.82 M/mm3 (4.2-5.4); White Blood Count 10.1 K/mm3 (4.4-11.0)
[2024-03-29 11:17] LABS: Vitamin D,25 Hydroxy 11.2 ng/mL
[2024-03-29 11:25] LABS: ALB/GLOB Ratio 0.8 RATIO (0.9-2.4); AST(SGOT) 15 U/L (15-37); Alanine Aminotransfer ALT/SGPT 26 U/L (13-56); Albumin, Serum 3.5 g/dL (3.2-5.0); Alkaline Phosphatase 78 U/L (45-117); Anion Gap 9 (5-15); BUN 11 mg/dL (7-18); BUN/Creat Ratio 11.9 RATIO (10-20); Calcium,Total 8.9 mg/dL (8.5-10.1); Chloride 107 mmol/L (98-107); Cholesterol 214 mg/dL (200); Creatinine, Serum 0.92 mg/dL (0.55-1.02); EST Glomerular Filtration Rate 75 mL/min (>60); Est Glom Filt Rate - Afr Amer 90 mL/min (>60); Globulin 4.2 g/dL (2.2-4.2); Glucose 93 mg/dL (74-106); High Density Lipoprotein 66 mg/dL; Potassium 3.7 mmol/L (3.5-5.1); Protein, Total 7.7 g/dL (6.4-8.2); Sodium Level 138 mmol/L (136-145); T4 Free Direct 1.03 ng/dL (0.76-1.46); Triglycerides 133 mg/dL; Very Low Density Lipoprotein 27 mg/dL (5-40)
[2024-04-07 05:06] LABS: Anti-Thyroglobulin AB 8.9 IU/mL (0.0-0.9); Thyroglobulin RIA 3.9 ng/mL (.)
== END | disposition home or self-care (01) ==
PROVIDERS: PCP Student in an Organized Health Care Education/Training Program; Referring Provider Student in an Organized Health Care Education/Training Program; Visit Provider Nurse Practitioner Family
DX: E11.9 Type 2 diabetes mellitus without complications (principal); Z13.220 Encounter for screening for lipoid disorders
CPT/HCPCS: 80053; 80061; 82306; 84432; 84439; 84443; 85027; 86800

== ENCOUNTER → 2024-06-28 | Outpatient (CLI) | payer BC, SELFPAY | END | disposition home or self-care (01) | PROVIDERS: PCP Student in an Organized Health Care Education/Training Program; Referring Provider Nurse Practitioner Family; Visit Provider Nurse Practitioner Family | DX: E89.0 Postprocedural hypothyroidism (principal) | CPT/HCPCS: 36415; 84439; 84443 ==